=== PATIENT | male | born 1945 | race Two or more races ===

== ENCOUNTER 2017-01-19 17:37 | Inpatient (IN) | payer MEDICARE, OTHER ==
[~2017-01-19] VITALS: Ht 170.2 cm; Wt 90.3 kg
[2017-01-19] MEDS ORDERED: TDAP [DIPH/PERTUSSIS/TET] 0.5 ML VIAL IM ONE (18:00)
--- NOTE | 2017-01-19 18:20 | NUR ---
PT CAME IN S/P SLIPPED AND FELL IN THE SHOWER. NOTED ABRASION ON THE BACK OF THE HEAD. REPORTS OF LOWER BACK PAIN AND HEADACHE. PT AAOX3. DENIES KO. DENIES NECK PAIN. FAMILY MEMBERS AT BS. VSS. SAFETY AND COMFORT MEASURES PROVIDED. WILL MONITOR.
--- NOTE | 2017-01-19 19:15 | NUR ---
ASSUMED CARE OF PT.
[2017-01-19] MEDS ORDERED: IV NS 0.9% 1,000 ML BAG IV ONE (19:30)
[2017-01-19] MEDS ORDERED: ONDANSETRON HCL/PF 4 MG/2 ML VIAL IVP ONE (19:30)
[2017-01-19] MEDS ORDERED: MORPHINE SULFATE INJ 2 MG/ML DISP.SYRIN IV ONE (19:30)
[2017-01-19] MEDS ORDERED: ONDANSETRON HCL/PF 4 MG/2 ML VIAL ONE (19:30)
[2017-01-19] MEDS ORDERED: IV SET PRIMARY PUMP SET 1 EA INFUS.SET MC ONE (19:30)
[2017-01-19] MEDS ORDERED: MORPHINE SULFATE INJ 4 MG/ML DISP.SYRIN ONE (19:30)
[2017-01-19] MEDS ORDERED: IV NS 0.9% 1,000 ML ONE (19:30)
[2017-01-19 19:39] LABS: BASOPHILS % (AUTO) 0.4 % (0.0-2.0); EOSINOPHILS # (AUTO) 0.5 /CMM (0.0-0.7); EOSINOPHILS % (AUTO) 4.3 % (0.0-6.0); HEMATOCRIT 42 % (39-51); HEMOGLOBIN 13.9 g/dL (13.5-17.5); LYMPHOCYTES # (AUTO) 1.4 /CMM (0.8-4.8); LYMPHOCYTES % (AUTO) 11.7 % (20.0-44.0); MEAN CORPUSCULAR HEMOGLOBIN 31 PG (26.0-33.0); MEAN CORPUSCULAR HGB CONC 33 g/dl (31.0-36.0); MEAN CORPUSCULAR VOLUME 95 fL (80-96); MONOCYTES % (AUTO) 8.4 % (2.0-12.0); NEUTROPHILS # (AUTO) 9.3 /CMM (1.8-8.9); NEUTROPHILS % (AUTO) 75.2 % (43.0-81.0); PLATELET COUNT (AUTO) 178 /CMM (150-450); RDW COEFFICIENT OF VARIATION 12.4 (11.5-15.0); RED BLOOD CELL COUNT(AUTO) 4.47 MIL/uL (4.5-6.0); WHITE BLOOD COUNT (AUTO) 12.2 K/uL (4.3-11.0)
--- NOTE | 2017-01-19 19:43 | NUR ---
PT MEDICATED ORDERED.
[2017-01-19 19:49] LABS: CALCIUM, SERUM 8.7 mg/dL (8.5-10.1); CREATININE 1.5 mg/dL (0.6-1.3)
--- NOTE | 2017-01-19 19:49 | NUR ---
PT [facility] FOR XRAY [facility]IA [facility].
[2017-01-19 19:53] LABS: INR 1.64 (0.87-1.13); PROTHROMBIN TIME 17.5 SECS (9.5-12.7)
--- NOTE | 2017-01-19 20:01 | NUR ---
TEXTED DR. LEONARD FOR MRI APPROVAL.
--- NOTE | 2017-01-19 20:02 | NUR ---
PT RETURNED FROM RADIOLOGY
--- NOTE | 2017-01-19 20:13 | NUR ---
ENGINEER DESIGN AND CONSTRUCTION WILL BE IN BETWEEN 9 0R 9.30 PM.
--- NOTE | 2017-01-19 20:24 | NUR ---
RADIOLOGY CALLED PT TO GO TO MRI BETWEEN 2099 AND 2129
--- NOTE | 2017-01-19 20:35 | NUR ---
CALLED REPORT TO MEAGAN RUSSELL
--- NOTE | 2017-01-19 20:50 | NUR ---
HEEL VARNISHER NOTES: RECEIVED RPEORT FROM [facility], PT CAME IN S/P FALL AT HOME, PT BROUGHT TO THE UNIT VIA GURNEY, FAMILY MEMBER AT BED SIDE, PT IS A/ OX 3 CENTRAL AFRICAN SPEAKING ONLY, DENIES ANY PAIN OR SOB AT THIS TIME, PER REPORT PT IS C/O LEFT HIP PAIN INSTEAD OF RIGHT HIP THE FX IS ON RIGHT FEMORAL NECK. RIGHT AC G 18 PATENT AND FLUSHING WELL, ON HL. VS TAKEN AND RECORDED, ORIENTED PT TO UNIT POLICY AND HOURLY ROUNDING. SKIN ASSESSMENT PERFORMED , ONLY OLD SCAR FROM PREVIOUS SURGERY NOTED, SAFETY PRECAUTIONS FOR FALL INITIATED CALL LIGHT IN REACH, WILL CONTINUE TO MONITOR
[2017-01-19 20:55] VITALS: BP 125/72
[2017-01-19 21:00] VITALS: BP 125/72
[2017-01-19] MEDS ORDERED: MAG HYDROX/AL HYDROX/SIMETH 30 ML UDC PO PRN (21:00)
[2017-01-19] MEDS ORDERED: ZOLPIDEM TARTRATE 5 MG TABLET PO PRN (21:00)
[2017-01-19] MEDS ORDERED: HYDROCODONE/APAP 5/325MG 1 EACH TABLET PO PRN (21:00)
[2017-01-19] MEDS ORDERED: INSULIN REGULAR, HUMAN 100 UNIT/ML 3 ML VIAL SQ PRN (21:00)
[2017-01-19] MEDS ORDERED: Z GUARD REMEDY 2 OZ OINT TP PRN (21:00)
[2017-01-19] MEDS ORDERED: *INSULIN REGULAR(HUMULIN R)HUM 100 UNIT/ML VIAL SQ PRN (21:00)
[2017-01-19] MEDS ORDERED: ONDANSETRON HCL/PF 4 MG/2 ML VIAL IVP PRN (21:00)
[2017-01-19] MEDS ORDERED: MORPHINE SULFATE INJ 2 MG/ML DISP.SYRIN IV PRN (21:00)
[2017-01-19] MEDS ORDERED: DEXTROSE 50%-WATER 50 ML DISP.SYRIN IV PRN (21:00)
[2017-01-19] MEDS ORDERED: MAGNESIUM HYDROXIDE 30 ML UDC PO PRN (21:00)
[2017-01-19] MEDS ORDERED: ACETAMINOPHEN 325 MG TABLET PO PRN (21:00)
[2017-01-19] MEDS ORDERED: CARV25TA2 PO (21:07)
[2017-01-19] MEDS ORDERED: ATOR20TA PO (21:07)
[2017-01-19] MEDS ORDERED: SPIR25TA4 PO (21:07)
[2017-01-19] MEDS ORDERED: SACU1TAB PO (21:07)
[2017-01-19] MEDS ORDERED: ASPI-991 PO (21:07)
[2017-01-19] MEDS ORDERED: GLIM2TAB2 PO (21:07)
[2017-01-19] MEDS ORDERED: RIVA10TA PO (21:07)
[2017-01-19] MEDS ORDERED: METF10002 PO (21:07)
[2017-01-19] MEDS ORDERED: SITA100T PO (21:07)
[2017-01-19] MEDS ORDERED: FURO40TA5 PO (21:07)
[2017-01-19] MEDS ORDERED: METO2.5T2 PO (21:07)
--- NOTE | 2017-01-19 21:33 | NUR ---
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
--- NOTE | 2017-01-19 22:05 | NUR ---
MEDICATIONS: PT HAS MEDICATIONS IN A BAG, PER FAMILY THEY WILL BRING IT HOME, INSTRUCTED FAMILY NOT TO GIVE ANY MEDICATIONS TO THE PT, HOSPITAL WILL PROVIDE MEDS WHILE PT IN HOUSE, UNLESS PHARMACY DOESNT CARRY IT, FAMILY UNDERSTAND, ALSO INVENTORY OF BELONGING COMPLETED BY ABY EL
--- NOTE | 2017-01-19 22:12 | NUR ---
RN NOTES: CTALKED TO DR CHANEY, RELAYED ABOUT PT HAVING PACEMAKER ICD ON LECT CW, INFORMED MRI CANNOT BE DONE, PER MD, "ITS FINE, I WILL HAVE DR BLEDSOE FOLLOW UP, NO ORDERS FROM DR GARZA.
[2017-01-19] MEDS: BLOOD SUGAR DIAGNOSTIC 1 EACH STRIP VI SCH (22:19)
--- NOTE | 2017-01-19 22:20 | NUR ---
ACCU CHECK: BLOOD SUGAR REVEAL 134, PT REFUSED FOR ANY COVERAGE, STATED "NLOOD SUGAR VERY GOOD, NO INSULIN", FAMILY AT BED SIDE, EDUCATE PT REGARDING MEDICATION COMPLIANCE, WILL CONTINUE TO MONITOR FOR ANY S/S OF HYPOGLYCEMIA
--- NOTE | 2017-01-19 23:00 | NUR ---
RN NOTES: INSTRUCTED PT TO IMMOBILIZE LEG AND AVOID GETTING UP OR WALKING, FAMILY AT BED SIDE TO TRANSLATE,
--- NOTE | 2017-01-20 01:47 | NUR ---
SLEEPING PILL: APPROACHED ME SAYING HE'S CANNOT SLEEP, HE'S REQUESTING FOR SLEEPING PILL, ASKED IF PT TAKES SLEEPING PILL AT HOME BUT SAID NO, THERE'S AN ORDER FOR AMBIEN, INFORMED ABOUT RISK AND SIDE EFFECT FOR FIRST TIME USER, HOWEVER PT INSIST FOR SLEEPING PILL, PRN AMBIEN 5MG TAB ADMINISTERED TO THE PT AT THIS TIME.
--- NOTE | 2017-01-20 03:34 | NUR ---
RN NOTES: SEEN PT SLEEPING AT THIS TIME, APPEARS CALM AND COMFORTABLE
[2017-01-20] MEDS: BLOOD SUGAR DIAGNOSTIC 1 EACH STRIP VI SCH ×3 (06:15→17:05)
--- NOTE | 2017-01-20 06:16 | NUR ---
ACCU CHECK: BLOOD SUGAR CHECKED AND SHOWS 137, NO INSULIN GIVEN PT REFUSED, STATED ITS OKAY, ITS GOOD FOR HIM, EDUCATION PROVIDED TO THE PT
--- NOTE | 2017-01-20 06:32 | NUR ---
MS RN CLOSING NOTES: PT IN BED, AWAKE, REMAINS A/O X3, DENIES ANY PAIN OR SOB AT THIS TIME. RIGHT AC IV ACCESS REMAINS PATENT AND FLUSHING WELL, ON HL. VS REMAINS STABLE, NEEDS ATTENDED. FOR ORTHO CONSULT TODAY, INSTRUCTED PT TO KEPT ON BED REST, AND IMMOBILIZED RIGHT LEG BUT PT STATED HE'S FINE AND NOT HURTING. WILL ENDORSE TO DAY RN FOR BINH.
[2017-01-20 07:10] LABS: BASOPHILS % (AUTO) 0.3 % (0.0-2.0); EOSINOPHILS # (AUTO) 0.5 /CMM (0.0-0.7); HEMATOCRIT 37 % (39-51); HEMOGLOBIN 12.6 g/dL (13.5-17.5); LYMPHOCYTES # (AUTO) 1.8 /CMM (0.8-4.8); LYMPHOCYTES % (AUTO) 19.3 % (20.0-44.0); MEAN CORPUSCULAR HEMOGLOBIN 33 PG (26.0-33.0); MEAN CORPUSCULAR HGB CONC 34 g/dl (31.0-36.0); MEAN CORPUSCULAR VOLUME 95 fL (80-96); MONOCYTES # (AUTO) 0.8 /CMM (0.1-1.30); MONOCYTES % (AUTO) 8.6 % (2.0-12.0); NEUTROPHILS # (AUTO) 6.1 /CMM (1.8-8.9); NEUTROPHILS % (AUTO) 66.8 % (43.0-81.0); PLATELET COUNT (AUTO) 141 /CMM (150-450); RDW COEFFICIENT OF VARIATION 13.1 (11.5-15.0); RED BLOOD CELL COUNT(AUTO) 3.89 MIL/uL (4.5-6.0); WHITE BLOOD COUNT (AUTO) 9.1 K/uL (4.3-11.0)
[2017-01-20 07:30] LABS: CALCIUM, SERUM 7.9 mg/dL (8.5-10.1); CREATININE 1.3 mg/dL (0.6-1.3); PHOSPHORUS 4.7 mg/dL (2.5-4.9); POTASSIUM 3.6 mmol/L (3.5-5.1)
[2017-01-20] MEDS ORDERED: PANTOPRAZOLE 40 MG TABLET.DR PO SCH (07:30)
--- NOTE | 2017-01-20 07:30 | NUR ---
MS RN AM NOTES: PT IN BED, AWAKE, REMAINS A/O X3, ON 2L O2 NC, DENIES ANY PAIN OR SOB AT THIS TIME. RIGHT AC 18G IV ACCESS FLUSHES WELL, SITE CLEAR. FOR ORTHO CONSULT TODAY, PER SPECIAL WARFARE BOAT OPERATOR, DR. CHANEY MAYRA HAVE DR. BLEDSOE SEE THE PATIENT. MRI NOT DONE DUE PACEMAKER. MD AWARE. INSTRUCTED PT TO KEPT ON BED REST, AND IMMOBILIZED RIGHT LEG BUT PT STATED HE'S FINE AND NOT HURTING. CALL LIGHT WITHIN REACH. AT BEDSIDE. WILL CONT TO MONITOR.
[2017-01-20 07:33] LABS: MAGNESIUM 1.2 mg/dL (1.8-2.4)
[2017-01-20 08:00] VITALS: BP 101/60
[2017-01-20] MEDS ORDERED: CARVEDILOL 12.5 MG TABLET PO SCH (09:00)
[2017-01-20] MEDS ORDERED: ATORVASTATIN 10 MG TABLET PO SCH (09:00)
[2017-01-20] MEDS ORDERED: METOLAZONE 2.5 MG TABLET PO SCH (09:00)
[2017-01-20] MEDS ORDERED: SPIRONOLACTONE 25 MG TABLET PO SCH (09:00)
[2017-01-20] MEDS ORDERED: FUROSEMIDE 40 MG TABLET PO SCH (09:00)
--- NOTE | 2017-01-20 09:30 | NUR ---
MS RN NOTES ADMINISTERED DUE MEDS.
[2017-01-20] MEDS: SACUBITRIL PO SCH ×2 (10:30→17:05)
[2017-01-20] MEDS: VALSARTAN PO SCH ×2 (10:30→17:05)
[2017-01-20] MEDS ORDERED: IV SET PRIMARY PUMP SET 1 EA INFUS.SET MC ONE (11:07)
[2017-01-20] MEDS: Magnesium 1GM/D5W 100ML PREMIX 100 ML IV SCH ×4 (11:12→14:43)
--- NOTE | 2017-01-20 11:12 | NUR ---
MS RN NOTES STARTED MAGNESIUM IV BAG #1.
--- NOTE | 2017-01-20 11:14 | NUR ---
EKG REPORTED TO NURSE JARVIS AT THIS TIME.
--- NOTE | 2017-01-20 11:20 | NUR ---
MS MEAGAN GARCIA PHOTOS OF XRAY SENT TO [facility] VIA TEXT MESSAGE. ORDERED NPO FOR PATIENT FOR NOW. AWARE PATIENT IN DIABETIC.
--- NOTE | 2017-01-20 12:24 | NUR ---
MS RN NOTES MAGNESIUM BAG #2 STARTED. ACCUCHECK DONE. BS 224 MG/DL. NO INSULIN COVERAGE GIVEN FOR NOW. PT PLACED ON NPO PER MAURISIO SEPULVEDA. DR. CRYSTAL HUTCHISON AT BEDSIDE.
--- NOTE | 2017-01-20 13:34 | NUR ---
MS RN NOTES MAGNESIUM BAG #3 STARTED.
--- NOTE | 2017-01-20 14:43 | NUR ---
MS RN NOTES MAGNESIUM BAG #4 STARTED.
--- NOTE | 2017-01-20 15:03 | NUR ---
MS RN NOTES FOLLOWED UP WITH MAURISIO SEPULVEDA AND DR BLEDSOE RE PT'S SON ASKING WHAT TIME THEY COMING TO SEE HIS FATHER. PER MAURISIO THEY WILL SEE PATIENT BEFORE 1700.
[2017-01-20 16:00] VITALS: BP 114/75
--- NOTE | 2017-01-20 16:50 | NUR ---
MS RN NOTES PER MAURISIO SEPULVEDA, PUT BACK ON ADA DIET. NO SURGERY TODAY PER DR. BLEDSOE, BUT HE WILL TALK TO FAMILY SOON HE CAN.
--- NOTE | 2017-01-20 17:15 | NUR ---
MS RN NOTES ACCUCHECK DONE. BS 114 MG/DL. NO INSULIN COVERAGE GIVEN FOR NOW.
[2017-01-20 18:00] VITALS: BP 114/75
--- NOTE | 2017-01-20 19:02 | NUR ---
MS RN NOTES PATIENT SON - NKECHI HARMON, VERY IMPATIENT, STATED "WE HAVE BEEN WAITING FOR ORTHOPEDIC DOCTOR AND UP TO THIS TIME NOBODY CAME". EXPLAINED TO PATIENT THAT IT IS O.R. DAY TODAY AND THAT THERES A LOT OF ONGOING SURGERY CASES. DESPITE EXPLAINING AND CALMING DOWN THE PATIENT AND THE FAMILY, THEY OPTED TO LEAVE AND STATED THAT THEY WILL FILE A COMPLAIN, NOT CLEAR WHERE. PROVIDED DC INSTRUCTIONS AND HEALTH TEACHINGS AND TO SEE PCP VIMAL. IV ACCESS TO LEFT FA REMOVED, CATH TIP COMPLETE. NO BLEEDING DRESSING IN PLACE. DR. AMANDEEP ARMAS, MAURISIO SEPULVEDA, NURSING ORTHOPHOTOGRAPHY TECHNICIAN - BLESSING AWARE. Addendum: 01/20/17 at 1934 by MATHEUS JOHN RN INCIDENT REPORT DONE Unique Id: [id number]
== END 2017-01-20 19:02 | disposition left against medical advice (07) | DRG 535 ==
LOC: ER 17:40 → MEDSG2 20:34
PROVIDERS: ADMIT Internal Medicine; ATTEND Internal Medicine
DX: S72.011A Unspecified intracapsular fracture of right femur, initial encounter for closed fracture (principal); N17.0 Acute kidney failure with tubular necrosis; I50.22 Chronic systolic (congestive) heart failure; D68.9 Coagulation defect, unspecified; W18.2XXA Fall in (into) shower or empty bathtub, initial encounter; Y93.9 Activity, unspecified; Y92.009 Unspecified place in unspecified non-institutional (private) residence as the place of occurrence of the external cause; Z95.1 Presence of aortocoronary bypass graft; M16.0 Bilateral primary osteoarthritis of hip; I25.2 Old myocardial infarction; E83.42 Hypomagnesemia; E11.65 Type 2 diabetes mellitus with hyperglycemia; I11.0 Hypertensive heart disease with heart failure; I25.10 Atherosclerotic heart disease of native coronary artery without angina pectoris; I48.0 Paroxysmal atrial fibrillation; Z95.810 Presence of automatic (implantable) cardiac defibrillator; M85.80 Other specified disorders of bone density and structure, unspecified site; S00.01XA Abrasion of scalp, initial encounter
CPT/HCPCS: 36415; 70450-TC; 71010-TC; 72100-TC; 72170-TC; 72220-TC; 73564-TC; 80048-TC; 82962-TC; 83735-TC; 84100-TC; 85025-TC; 85730-TC; 87081-TC; 93307-TC; A4606; A6402; J1815; J2270; J2405; J3475; J7030; Z7610